=== PATIENT | male | born 1990 | race African-American/Black ===

== ENCOUNTER 2017-08-22 16:37 | Emergency (ER) | payer SELFPAY ==
[~2017-08-22] VITALS: Ht 170.2 cm; Wt 69.4 kg
[2017-08-22 16:44] VITALS: BP 157/105
--- NOTE | 2017-08-22 16:48 | NUR ---
Martina hernandez in [facility] - 08/22/17 at 1650 by [facility] PT TAKEN TO BED 10 IN WHEELCHAIR
--- NOTE | 2017-08-22 16:51 | NUR ---
PT AMBULATED TO BED 3
--- NOTE | 2017-08-22 17:00 | NUR ---
PATIENT BIB [employer] FOR POSSIBLE ABRASION ON PENIS. [employer] FOUND PATIENT MASTERBATING ON FLOOR AND BLOOD SMEARED UNDER HIS PELVIS REGION. PATIENT DENIES PAIN. SKIN ON SCROTUM APPEARS INTACT AND WITHOUT TRAUMA. PATIENT IS DEAF AND DEVELOPMENTALLY DELAYED. CAN SIGN. PATIENT VSS. PATIENT POSITIONED FOR COMFORT; HOB ELEVATED; BEDRAILS UP X2; BED DOWN. ER MD MADE AWARE OF PT STATUS.
[2017-08-22 17:30] VITALS: BP 147/90
--- NOTE | 2017-08-22 17:30 | NUR ---
Patient discharged with v/s stable. Written and verbal after care instructions given and explained. Patient verbalized understanding. Ambulatory with steady gait. All questions addressed prior to discharge. Advised to follow up with PMD.
== END 2017-08-22 17:30 | disposition home or self-care (01) ==
LOC: MED 16:37
DX: Z00.00 Encounter for general adult medical examination without abnormal findings (principal); H91.90 Unspecified hearing loss, unspecified ear
CPT/HCPCS: 81002; 99281; 99282

== ENCOUNTER 2018-03-20 10:37 | Emergency (ER) | payer MEDICAID ==
[~2018-03-20] VITALS: Ht 167.6 cm; Wt 76.2 kg
[2018-03-20 10:44] VITALS: BP 162/91
[2018-03-20] MEDS: NEOMYCIN/POLYMYXIN/BACITRACIN 0.9 GM/1 PKT TP ONE (11:17)
[2018-03-20 11:26] VITALS: BP 160/90
== END 2018-03-20 11:26 | disposition home or self-care (01) ==
LOC: MED 10:37
DX: S91.104A Unspecified open wound of right lesser toe(s) without damage to nail, initial encounter (principal); F84.0 Autistic disorder; W22.03XA Walked into furniture, initial encounter; Y93.02 Activity, running; Y92.008 Other place in unspecified non-institutional (private) residence as the place of occurrence of the external cause; Y99.8 Other external cause status
CPT/HCPCS: 73630; 99283; Q0092